=== PATIENT | female | born 1940 | race Caucasian/White ===

== ENCOUNTER 2017-04-03 07:57 | Day surgery (SDC) | payer MEDICARE ==
[~2017-04-03] VITALS: Ht 175.3 cm; Wt 81.8 kg
[2017-04-03] VITALS (7 sets, daily range): BP systolic 108–157; BP diastolic 55–80; PULSE 88–105; RESP 18–20; TEMP 97.6–97.8; O2SAT 90–96
[~2017-04-03 07:57] MED LIST: DIAZ2 PO; PARO20
[2017-04-03] MEDS ORDERED: LIDOCAINE 1%/EPINEPHrine 1:100,000 SOLN 20 ML VIAL ONE (08:22)
[2017-04-03] MEDS ORDERED: BIOTCAP PO (08:26)
[2017-04-03] MEDS ORDERED: CYCL10TA PO (08:26)
[2017-04-03] MEDS ORDERED: LOSA25TA PO (08:26)
[2017-04-03] MEDS ORDERED: DULO1CAP PO (08:26)
[2017-04-03] MEDS ORDERED: hyaluronic acid (08:26)
[2017-04-03] MEDS ORDERED: FISHCAP4 PO (08:26)
[2017-04-03] MEDS ORDERED: VITA-142 (08:26)
[2017-04-03] MEDS ORDERED: FEXO15TA PO (08:26)
[2017-04-03] MEDS ORDERED: SODIUM CHLOR 0.9% 1000 ML IV SCH (08:30)
[2017-04-03] MEDS ORDERED: MIDAZOLAM HCL 2 MG/2 ML VIAL ONE (08:58)
--- NOTE | 2017-04-03 09:34 | PD.RAD ---
Post CT Procedure Prog Note Pre Procedure Diagnosis: (1) Elevated liver enzymes Post Procedure Diagnosis: (1) Elevated liver enzymes Procedure Date: Apr 03, 2017 Supervising Radiologist: Manjinder Fermin Estimated blood loss: none. Anesthesia: Conscious Sedation Plan of Activity Patient to Unit: [facility] Patient Condition: Good See PACS Report for procedural detail/treatment Biopsy Imaging Guidance: CT Side: Right Biopsy Procedure: Liver Site: left lobe liver non-targeted biopsy Specimen: Core Biopsy Plan to [facility] for monitoring then discharge in 4 hours. Manjinder Fermin MD Apr 03, 2017 09:34
--- NOTE | 2017-04-03 14:48 | RADRPT ---
EXAM DATE/TIME: 04/03/2017 09:15 [place] COMPARISON: No previous studies available for comparison. INDICATIONS : Elevated transaminases and abnormal liver ultrasound. SEDATION TIME: 20 minutes BIOPSY SITE: Right upper quadrant. MEDICATION(S): 1.) 2 mg midazolam (Versed) IV 2.) 100 mcg fentanyl (Sublimaze) IV DEVICE(S): 1.) 18 gauge Temno core biopsy needle MEDICAL HISTORY : Hypercholesterolemia. Fibromyalgia. SURGICAL HISTORY : Appendectomy. Hysterectomy. Lumbar laminectomy. ENCOUNTER: Initial ACUITY: 1 day PAIN SCORE: 0/10 LOCATION: Right upper quadrant A total of one core specimen(s) were obtained and sent to the laboratory for pathologic evaluation. PROCEDURE: 1. CT guided liver biopsy. Prior to the procedure informed consent was obtained. Any appropriate prior imaging studies were rev iewed. Using automated exposure control and adjustment of the mA and/or kV according to patient size, radiat ion dose was kept as low as reasonably achievable to obtain optimal diagnostic quality images. DICOM format image data is available electronically for review and comparison. The site was prepped in a sterile fashion. Full sterile technique was used, including cap, mask, marilin rile gloves and gown and a large sterile sheet. Hand hygiene and 2% chlorhexidine and/or betadine/al cohol prep was utilized per protocol for cutaneous antisepsis. The skin and subcutaneous tissues wer e infiltrated with local anesthetic solution. With CT guidance the liver was localized. It demonstrates decreased density consistent with steatosis . The left lobe was targeted. Biopsy was performed using the prescribed needle as above. Adequate he mostasis was obtained with compression at the puncture site. Follow-up CT scan reveals no hemorrhage or acute abnormality. The patient tolerated the procedure well and there were no complications. The patient was returned to the Radiology Outpatient Unit in stable condition. CONCLUSION: Uncomplicated nontargeted CT guided biopsy of the liver. Manjinder Fermin MD on April 03, 2017 at 14:45 Board Certified Radiologist. This report was verified electronically.
== END 2017-04-03 13:30 | disposition home or self-care (01) ==
LOC: HRAD 07:57 → HRIP 07:58 → HRAD 13:30
PROVIDERS: ATTEND Physician Assistant Medical
DX: K74.60 Unspecified cirrhosis of liver (principal); R74.8 Abnormal levels of other serum enzymes; M79.7 Fibromyalgia; E78.00 Pure hypercholesterolemia, unspecified
CPT/HCPCS: 47000; 77012; 88307; 88313; J2250; J3010; J7030